=== PATIENT | male | born 1980 | race Caucasian/White ===

== ENCOUNTER 2020-10-22 08:56 | Outpatient (REF) | payer OTHER, SELFPAY ==
--- NOTE | ~2020-10-22 | US_ITS ---
EXAMINATION: US ABDOMEN LIMITED CLINICAL INFORMATION: Right upper quadrant pain. COMPARISON: None TECHNIQUE: Real-time imaging of the right upper quadrant abdominal viscera. FINDINGS: PANCREAS: Normal. LIVER: There is increased hepatic echogenicity consistent with fatty infiltration. The liver is normal in size. The liver contour is normal. No focal hepatic lesion. There is no intrahepatic biliary duct dilatation seen. GALLBLADDER: Normal. The gallbladder is physiologically distended without evidence of stones, sludge, polyps, wall thickening or pericholecystic fluid. COMMON BILE DUCT: Normal in caliber measuring 0.23 cm in diameter. RIGHT KIDNEY: Normal. No hydronephrosis. No renal calculi or focal parenchymal lesions. The kidney measures 10.0 cm in maximum dimension. FREE FLUID: None. US/US abdomen limited IMPRESSION: Fatty infiltration of the liver. No evidence of cholelithiasis or acute cholecystitis.
== END 2020-10-22 08:57 | disposition home or self-care (01) ==
LOC: HO.HMGCX 08:56
PROVIDERS: PCP Nurse Practitioner Family; Visit Provider Hospitalist
DX: R10.11 Right upper quadrant pain (principal)
CPT/HCPCS: 76705

== ENCOUNTER → 2020-11-10 13:22 | Outpatient (BNVA) | payer OTHER, SELFPAY | PROVIDERS: PCP Nurse Practitioner Family; Referring Provider Nurse Practitioner Family; Visit Provider Surgery ==

== ENCOUNTER → 2021-11-24 07:46 | Outpatient (REF) | payer OTHER, SELFPAY ==
--- NOTE | ~2021-11-24 | NM_ITS ---
EXAMINATION: NM HIDA SCAN WITH ENSURE INDICATION: Right upper quadrant pain. COMPARISON: Ultrasound dated 10/22/2020 TECHNIQUE: 5 mCi technetium 99m mebrofenin. FINDINGS: Imaging over the right upper quadrant. Uptake by the liver is within normal limits. There is ductal activity by 11 minutes. Gallbladder activity by 26 minutes. Bowel activity by 12 minutes. Subsequent administration of Ensure demonstrates a gallbladder ejection fraction of 7%. NM/NM hepatobiliary w pharm IMPRESSION: Depressed gallbladder ejection fraction at 7%. May well be consistent with gallbladder dyskinesis.
== END ==
LOC: HO.NUCMED 07:46
PROVIDERS: PCP Nurse Practitioner Family; Visit Provider Nurse Practitioner Family
DX: R10.11 Right upper quadrant pain (principal)
CPT/HCPCS: 78227; A9537

== ENCOUNTER → 2022-02-08 09:48 | Outpatient (BNVA) | payer OTHER, SELFPAY | PROVIDERS: PCP Nurse Practitioner Family; Referring Provider Surgery; Visit Provider Dietitian, Registered | DX: Z71.3 Dietary counseling and surveillance (principal); E66.9 Obesity, unspecified | CPT/HCPCS: 97802 ==

== ENCOUNTER 2022-03-16 12:51 | Outpatient (REF) | payer OTHER, SELFPAY ==
[2022-03-16 13:05] LABS: MANUAL DIFF FLAG NO
[2022-03-16 13:14] LABS: Basophils Absolute Auto 0.1 X10*3/uL (0.0-0.2); Basophils Percent Auto 0.7 % (0-2); Eosinophils Absolute Auto 0.2 X10*3/uL (0.0-0.4); Eosinophils Percent Auto 2.7 % (0-4); Hematocrit 49.1 % (42.0-52.0); Imm Gran Abs Auto 0.03 X10*3/uL (0.00-0.03); Imm Gran Pct Auto 0.4 % (0.0-0.4); Lymphocytes Absolute Auto 2.6 X10*3/uL (1.2-4.9); Lymphocytes Percent Auto 32.3 % (20-40); Mean Corpuscular HGB Conc 36.7 g/dl (31.0-36.0); Mean Corpuscular Hemoglobin 33.3 pg (27.0-33.0); Mean Corpuscular Volume 90.9 fL (80.0-98.0); Mean Platelet Volume 10.5 fL (9.4-12.4); Monocytes Absolute Auto 0.9 X10*3/uL (0.1-1.2); Monocytes Percent Auto 11.1 % (2-11); Neutrophils Absolute Auto 4.3 x10*3/uL (2.0-8.3); Neutrophils Percent Auto 52.8 % (45-73); Platelet Count 220 X10*3/uL (160-400); Red Cell Distribution Width 11.9 % (11.0-16.0); White Blood Count 8.1 X10*3/uL (4.8-10.8)
[2022-03-16 13:48] LABS: Alanine Aminotransferase 69 U/L (0-40); Albumin Level 4.8 g/dL (3.5-5.0); Alkaline Phosphatase 49 U/L (39-117); Anion Gap 14 (12-20); Aspartate Amino Transferase 33 U/L (5-37); Bilirubin Total 0.7 mg/dL (0.0-1.0); Blood Urea Nitrogen 15 mg/dL (9-16); Calcium 9.8 mg/dL (8.4-10.2); Carbon Dioxide 25 mmol/L (22-29); Chloride 103 mmol/L (96-108); Estimated Glomerular Filt Rate > 60; Glucose Random 94 mg/dL (60-115); Potassium 4.4 mmol/L (3.3-5.1); Sodium 138 mmol/L (135-145); Total Protein 7.3 g/dL (6.5-8.0)
== END 2022-03-16 12:52 | disposition home or self-care (01) ==
LOC: HO.LAB 12:51
PROVIDERS: PCP Nurse Practitioner Family; Visit Provider Nurse Practitioner
DX: R10.11 Right upper quadrant pain (principal); K21.9 Gastro-esophageal reflux disease without esophagitis; K76.0 Fatty (change of) liver, not elsewhere classified
CPT/HCPCS: 36415; 80053; 85025; 87338

== ENCOUNTER 2022-04-14 10:21 | Outpatient (REF) | payer OTHER, SELFPAY ==
--- NOTE | ~2022-04-14 | FL_ITS ---
EXAMINATION: FL BARIUM SWALLOW CLINICAL INFORMATION: Right upper quadrant pain. COMPARISON: None TECHNIQUE: Barium swallow examination is performed using fluoroscopic evaluation in addition to multiple fluoroscopic spot views. The patient is imaged both upright and prone and using both thick and thin sulfate. Fluoroscopy Time: 1.6 minutes DAP: 7.6 Gycm2. Images: 30. FINDINGS: Patient swallowed thin and thick barium and half-inch diameter barium tablet without difficulty. There is no evidence of nasopharyngeal reflux or tracheal aspiration. There is normal elevation of the soft palate while saying candy. There is normal apposition of the vocal cords while saying E. No Zenker's diverticulum was identified. No cricopharyngeal hypertrophy. There is normal esophageal motility. No persistent stricture identified. No ulcerations or erosions. There is a small sliding hiatal hernia present. No gastroesophageal reflux was elicited during the study including with water siphon test. FL/FL barium swallow IMPRESSION: 1. Small sliding hiatal hernia. 2. Unremarkable esophagram.
== END 2022-04-14 10:22 | disposition home or self-care (01) ==
LOC: HO.XRAY 10:21
PROVIDERS: PCP Nurse Practitioner Family; Visit Provider Nurse Practitioner
DX: R10.11 Right upper quadrant pain (principal); K21.9 Gastro-esophageal reflux disease without esophagitis; K76.0 Fatty (change of) liver, not elsewhere classified
CPT/HCPCS: 74220

== ENCOUNTER 2022-10-28 10:23 | Outpatient (REF) | payer OTHER, SELFPAY ==
--- NOTE | ~2022-10-28 | US_ITS ---
EXAMINATION: US SCROTUM CLINICAL INFORMATION: Right scrotal pain.. History of right inguinal hernia repair COMPARISON: None available. TECHNIQUE: A sonogram of the scrotum was performed assessing houston-scale appearance and color Doppler flow. Spectral Doppler analysis of the arterial and venous flow were performed in the testes bilaterally. FINDINGS: RIGHT: Right testicle measures 5.0 x 2.8 x 3.2 cm, volume 23.4 mL. No focal testicular parenchymal lesions are visualized. Spectral Doppler analysis of the arterial and venous flow is normal in the right testis. Right epididymal head is normal in size. There is a small anechoic epididymal cyst measuring 0.3 x 0.2 x 0.3 cm. The right epididymis is slightly heterogeneous and hyperemic suspicious for epididymitis No right hydrocele or varicocele is seen. LEFT: Left testicle measures 4.6 x 2.8 x 3.3 cm, volume 22.2 mL. No focal testicular parenchymal lesions are visualized. Spectral Doppler analysis of the arterial and venous flow is normal in the left testis. Left epididymal head is normal in size. There is a small epididymal head anechoic cyst measuring 0.8 x 0.5 x 1.2 cm. No left hydrocele or varicocele is seen. Left epididymal Doppler flow is normal. US/US scrotum IMPRESSION: 1. Slightly heterogeneous and hyperemic right epididymis suspicious for epididymitis. 2. Bilateral epididymal head cysts. 3. The testes are unremarkable. There is normal flow seen to both testes. Results were discussed with Dr. Lipscomb by phone at 11:20 AM
--- NOTE | ~2022-10-28 | US_ITS ---
EXAMINATION: US SCROTUM CLINICAL INFORMATION: Right scrotal pain.. History of right inguinal hernia repair COMPARISON: None available. TECHNIQUE: A sonogram of the scrotum was performed assessing houston-scale appearance and color Doppler flow. Spectral Doppler analysis of the arterial and venous flow were performed in the testes bilaterally. FINDINGS: RIGHT: Right testicle measures 5.0 x 2.8 x 3.2 cm, volume 23.4 mL. No focal testicular parenchymal lesions are visualized. Spectral Doppler analysis of the arterial and venous flow is normal in the right testis. Right epididymal head is normal in size. There is a small anechoic epididymal cyst measuring 0.3 x 0.2 x 0.3 cm. The right epididymis is slightly heterogeneous and hyperemic suspicious for epididymitis No right hydrocele or varicocele is seen. LEFT: Left testicle measures 4.6 x 2.8 x 3.3 cm, volume 22.2 mL. No focal testicular parenchymal lesions are visualized. Spectral Doppler analysis of the arterial and venous flow is normal in the left testis. Left epididymal head is normal in size. There is a small epididymal head anechoic cyst measuring 0.8 x 0.5 x 1.2 cm. No left hydrocele or varicocele is seen. Left epididymal Doppler flow is normal. US/US scrotum doppler IMPRESSION: 1. Slightly heterogeneous and hyperemic right epididymis suspicious for epididymitis. 2. Bilateral epididymal head cysts. 3. The testes are unremarkable. There is normal flow seen to both testes. Results were discussed with Dr. Lipscomb by phone at 11:20 AM
== END 2022-10-28 10:24 | disposition home or self-care (01) ==
LOC: HO.HMGCX 10:23
PROVIDERS: PCP Nurse Practitioner Family; Visit Provider Internal Medicine
DX: N45.2 Orchitis (principal)
CPT/HCPCS: 76870; 93975

== ENCOUNTER → 2022-11-23 13:33 | Outpatient (BNVA) | payer OTHER, SELFPAY | PROVIDERS: PCP Nurse Practitioner Family; Visit Provider Nurse Practitioner ==

== ENCOUNTER 2022-12-02 08:29 | Outpatient (REF) | payer OTHER, SELFPAY ==
[2022-12-02 11:24] LABS: MANUAL DIFF FLAG NO
[2022-12-02 11:31] LABS: Appearance Urine Clear; Color Urine Yellow; Glucose Urine UA Negative (Negative); Leukocyte Esterase Urine Negative (Negative); Nitrite Urine Negative (Negative); PH 5.5 (5.0-9.0); Urine Blood Negative (Negative); Urine Ketones Negative (Negative); Urine Protein Negative (Neg-Trace)
[2022-12-02 11:38] LABS: Basophils Percent Auto 0.6 % (0-2); Eosinophils Absolute Auto 0.1 X10*3/uL (0.0-0.4); Eosinophils Percent Auto 2.2 % (0-4); Hematocrit 48.9 % (42.0-52.0); Hemoglobin 17.6 g/dl (14.0-18.0); Imm Gran Abs Auto 0.05 X10*3/uL (0.00-0.03); Imm Gran Pct Auto 0.8 % (0.0-0.4); Lymphocytes Absolute Auto 2.2 X10*3/uL (1.2-4.9); Lymphocytes Percent Auto 34.8 % (20-40); Mean Corpuscular Hemoglobin 32.5 pg (27.0-33.0); Mean Corpuscular Volume 90.2 fL (80.0-98.0); Mean Platelet Volume 10.8 fL (9.4-12.4); Monocytes Absolute Auto 0.7 X10*3/uL (0.1-1.2); Monocytes Percent Auto 11.6 % (2-11); Neutrophils Absolute Auto 3.2 x10*3/uL (2.0-8.3); Platelet Count 220 X10*3/uL (160-400); Red Blood Count 5.42 X10*6/uL (4.60-5.80); Red Cell Distribution Width 12.2 % (11.0-16.0); White Blood Count 6.4 X10*3/uL (4.8-10.8)
[2022-12-02 11:59] LABS: Alanine Aminotransferase 64 U/L (0-40); Albumin Level 4.3 g/dL (3.5-5.0); Alkaline Phosphatase 48 U/L (39-117); Anion Gap 13 (12-20); Aspartate Amino Transferase 33 U/L (5-37); Bilirubin Total 0.8 mg/dL (0.0-1.0); Blood Urea Nitrogen 14 mg/dL (9-16); Calcium 9.8 mg/dL (8.4-10.2); Carbon Dioxide 24 mmol/L (22-29); Chloride 103 mmol/L (96-108); Cholesterol 165 mg/dL; Estimated Glomerular Filt Rate > 60; Glucose Fasting 99 mg/dL (60-99); HDL Cholesterol 31 mg/dL; LDL Cholesterol Calculated 86 mg/dl; Sodium 136 mmol/L (135-145); Total Protein 7.1 g/dL (6.5-8.0); Triglycerides 242 mg/dL
[2022-12-02 12:19] LABS: TSH reflex Free T4 1.93 uIU/mL (0.32-4.0)
[2022-12-08 18:23] LABS: Testosterone, Free 65.1 pg/mL (35.0-155.0); Testosterone, Total 277 ng/dL (250-1100)
== END 2022-12-02 08:30 | disposition home or self-care (01) ==
LOC: HO.HMGCLDS 08:29
PROVIDERS: PCP Nurse Practitioner Family; Visit Provider Nurse Practitioner Family
DX: Z00.00 Encounter for general adult medical examination without abnormal findings (principal); R53.83 Other fatigue; E78.5 Hyperlipidemia, unspecified
CPT/HCPCS: 36415; 80053; 80061; 81003; 84402; 84403; 84443; 85025

== ENCOUNTER 2023-01-31 08:22 | Outpatient (AMB) | payer OTHER, SELFPAY ==
--- NOTE | 2023-01-31 08:48 | MHC.OFFWIV ---
Intake Vital Signs 01/31/23 08:51 Weight 240 lb BP 112/76 Blood Pressure Location Rt brachial Position Sitting Pulse 76 Pulse Source Pulse Oximeter Pulse Oximetry (%) 98 Oxygen Delivery Method Room Air Intake Visit Reasons: EST/sore throat/cough/[phone] Intake Note: Patient here for sore throat and cough that has been present for about 3 days. Patient Tobacco Use Status: Never used Tobacco Allergies No Known Allergies Allergy (Verified 01/31/23 09:30) Medication List - Last Reconciled 01/31/23 by Joseph Lee MD azithromycin (Zithromax) take 500 mg today (day 1), then 250 mg for 4 days (days 2-5) PO cholecalciferol (vitamin D3) 1,250 mcg PO QWEEK famotidine (Pepcid) 40 mg PO BEDTIME hydrochlorothiazide 25 mg PO DAILY lisinopril 10 mg PO DAILY 90 days methocarbamol 750 mg PO DAILY PRN omega-3 acid ethyl esters 2 caps PO BID 90 days Do you need a note to return to daycare/school/sports/work: No HPI EST/sore throat/cough/[phone] HPI Details Patient presents for a sick visit. Reporting symptoms of sinus congestion, sore throat and difficulty swallowing. Low-grade fever. No family member is sick. No recent travel. Patient reports symptoms of malaise and fatigue. [facility] Medical History Paroxysmal A-fib Nprux-Devuszwpy-Ocuwp (WPW) pattern Surgical History History of cardiac catheterization History of esophagogastroduodenoscopy (EGD) History of right inguinal hernia repair Social History Alcohol intake: current Alcohol intake frequency: holidays/special occasions only Patient Tobacco Use Status: Never used Tobacco e-Cigarette/Vaping Use: Never Used Second Hand Smoke Exposure: No service: Yes Current occupational status: employed Current occupation: [employer] Current occupational exposures/hazards: Yes Cognitive needs: No Hearing needs: No Vision needs: No Physical Exam Vital Signs: Last Vital Signs Pulse 76 01/31/23 08:51 BP 112/76 01/31/23 08:51 Pulse Ox 98 01/31/23 08:51 Oxygen Delivery Method Room Air 01/31/23 08:51 Const General: cooperative and healthy appearing Nutritional Appearance: well nourished Orientation/consciousness: patient oriented x3 Limitations: no limitations HEENT Head: Yes normal to inspection Eyes General: appearance normal, both eyes and all related structures Neck Neck: Yes normal visual inspection Chest Chest palpation & inspection: normal palpation of entire chest wall Resp Effort & Inspection: normal respiratory effort Neuro General: patient oriented x3 Results AMB Rapid Strep AMB Rapid Strep Negative Last Edit by TRAVIS Rodrigues on 01/31/23 09:20 Results Reviewed Results Reviewed: Laboratory Last Values Strep Scn Rapid Clinic Negative 01/31/23 09:19 Assessment & Plan Assessment & Plan (1) Upper respiratory tract infection: Code(s): J06.9 - Acute upper respiratory infection, unspecified Plan: Antibiotics ordered. Increase fluid intake. Tylenol for aches and pains. If symptoms worsen, follow-up here for a recheck. Orders: Orders AMB Rapid Strep Screen Today Z13.9 - Encounter for screening, unspecified Medications: New azithromycin (Zithromax) take 500 mg today (day 1), then 250 mg for 4 days (days 2-5) PO 6 tabs 0RF Coding Level of Care Code Est Pt Level 3 (08750) Diagnoses Upper respiratory tract infection J06.9
[2023-01-31 08:51] VITALS: BP 112/76; PULSE 76; O2SAT 98
== END 2023-01-31 09:56 | disposition home or self-care (01) ==
PROVIDERS: PCP Nurse Practitioner Family; Visit Provider Internal Medicine
DX: J06.9 Acute upper respiratory infection, unspecified (principal); J02.9 Acute pharyngitis, unspecified
CPT/HCPCS: 87880; 99213

== ENCOUNTER 2023-08-30 08:38 | Outpatient (REF) | payer OTHER, SELFPAY ==
[2023-08-30 11:25] LABS: MANUAL DIFF FLAG NO
[2023-08-30 11:40] LABS: Appearance Urine Clear; Color Urine Yellow; Glucose Urine UA Negative (Negative); Leukocyte Esterase Urine Negative (Negative); Nitrite Urine Negative (Negative); Urine Blood Negative (Negative); Urine Ketones Negative (Negative); Urine Protein Negative (Neg-Trace)
[2023-08-30 11:41] LABS: Basophils Percent Auto 0.5 % (0-2); Eosinophils Absolute Auto 0.2 X10*3/uL (0.0-0.4); Eosinophils Percent Auto 2.3 % (0-4); Hematocrit 47.8 % (42.0-52.0); Hemoglobin 17.2 g/dl (14.0-18.0); Imm Gran Abs Auto 0.03 X10*3/uL (0.00-0.03); Imm Gran Pct Auto 0.5 % (0.0-0.4); Lymphocytes Percent Auto 30.2 % (20-40); Mean Corpuscular Hemoglobin 32.6 pg (27.0-33.0); Mean Corpuscular Volume 90.7 fL (80.0-98.0); Mean Platelet Volume 10.5 fL (9.4-12.4); Monocytes Absolute Auto 0.8 X10*3/uL (0.1-1.2); Monocytes Percent Auto 11.7 % (2-11); Neutrophils Absolute Auto 3.7 x10*3/uL (2.0-8.3); Neutrophils Percent Auto 54.8 % (45-73); Platelet Count 222 X10*3/uL (160-400); Red Blood Count 5.27 X10*6/uL (4.60-5.80); Red Cell Distribution Width 12.1 % (11.0-16.0); White Blood Count 6.7 X10*3/uL (4.8-10.8)
[2023-08-30 12:02] LABS: Alanine Aminotransferase 56 U/L (0-40); Albumin Level 4.3 g/dL (3.5-5.0); Alkaline Phosphatase 42 U/L (39-117); Anion Gap 12 (12-20); Aspartate Amino Transferase 33 U/L (5-37); Bilirubin Total 0.5 mg/dL (0.0-1.0); Blood Urea Nitrogen 16 mg/dL (9-16); Calcium 9.3 mg/dL (8.4-10.2); Carbon Dioxide 27 mmol/L (22-29); Chloride 105 mmol/L (96-108); Cholesterol 172 mg/dL (<200); Estimated Glomerular Filt Rate > 60; Glucose Fasting 105 mg/dL (60-99); HDL Cholesterol 31 mg/dL (>40); LDL Cholesterol Calculated 102 mg/dL (<100); Potassium 4.1 mmol/L (3.3-5.1); Sodium 140 mmol/L (135-145); Total Protein 6.8 g/dL (6.5-8.0); Triglycerides 199 mg/dL (<150)
[2023-08-30 12:07] LABS: TSH reflex Free T4 1.49 uIU/mL (0.32-4.0)
== END 2023-08-30 08:39 | disposition home or self-care (01) ==
LOC: HO.HMGCLDS 08:38
PROVIDERS: PCP Nurse Practitioner Family; Visit Provider Nurse Practitioner Family
DX: I10 Essential (primary) hypertension (principal)
CPT/HCPCS: 36415; 80053; 80061; 81003; 84443; 85025

== ENCOUNTER 2023-11-27 06:18 | Outpatient (REF) | payer OTHER, SELFPAY ==
[2023-11-27 10:50] LABS: Alanine Aminotransferase 60 U/L (0-40); Albumin Level 4.4 g/dL (3.5-5.0); Alkaline Phosphatase 43 U/L (39-117); Anion Gap 16 (12-20); Aspartate Amino Transferase 39 U/L (5-37); Bilirubin Total 0.6 mg/dL (0.0-1.0); Blood Urea Nitrogen 19 mg/dL (9-16); Calcium 9.7 mg/dL (8.4-10.2); Carbon Dioxide 23 mmol/L (22-29); Chloride 106 mmol/L (96-108); Cholesterol 148 mg/dL (<200); Estimated Glomerular Filt Rate > 60; Glucose Fasting 111 mg/dL (60-99); HDL Cholesterol 30 mg/dL (>40); LDL Cholesterol Calculated 93 mg/dL (<100); Potassium 3.8 mmol/L (3.3-5.1); Sodium 141 mmol/L (135-145); Total Protein 7.1 g/dL (6.5-8.0); Triglycerides 129 mg/dL (<150)
== END 2023-11-27 06:19 | disposition home or self-care (01) ==
LOC: HO.HMGCLDS 06:18
PROVIDERS: PCP Nurse Practitioner Family; Visit Provider Nurse Practitioner Family
DX: E78.5 Hyperlipidemia, unspecified (principal)
CPT/HCPCS: 36415; 80053; 80061

== ENCOUNTER 2024-02-09 12:46 | Outpatient (AMB) | payer OTHER, SELFPAY ==
--- NOTE | 2024-02-09 13:05 | MHC.OFFWIV ---
Intake Vital Signs 02/09/24 13:06 Height 5 ft 8 in Weight 238 lb BMI 36.2 BP 130/90 H Blood Pressure Location Lt brachial Position Sitting Pulse 72 Pulse Source Pulse Oximeter Pulse Oximetry (%) 97 Oxygen Delivery Method Room Air Intake Visit Reasons: EP- RT leg big bite Intake Note: Patient here for bug bite on right leg that happened last . Patient Tobacco Use Status: Never used Tobacco Allergies No Known Allergies Allergy (Verified 02/09/24 13:07) Do you need a note to return to daycare/school/sports/work: No HPI HPI Comments History of Present Illness Details Patient is a 43-year-old male complaining of 7 days of what he thinks are bug bites on his legs that are extremely itchy. He states that the itching keeps him up at night. He states it started on his right leg and now is on his left leg it is right forearm. He states he does not think the bites have any fluid-filled vesicles that have popped or are weeping any fluid. He states the area is not warm and they seem to be scattered on his legs. He states his and kids have not gotten any of these bites. He does mention they went camping a week ago when when he got home he was mowing the lawn and that is when he thinks everything started [facility] Medical History Paroxysmal A-fib Rbrdk-Gevwunpqf-Dlypj (WPW) pattern Surgical History History of cardiac catheterization History of esophagogastroduodenoscopy (EGD) History of right inguinal hernia repair Social History Alcohol intake: current Alcohol intake frequency: holidays/special occasions only Patient Tobacco Use Status: Never used Tobacco e-Cigarette/Vaping Use: Never Used Second Hand Smoke Exposure: No service: Yes Current occupational status: employed Current occupation: [employer] Current occupational exposures/hazards: Yes Cognitive needs: No Hearing needs: No Vision needs: No Review of Systems Const All systems reviewed & are unremarkable except as noted in HPI and below Physical Exam Vital Signs: Last Vital Signs Pulse 72 02/09/24 13:06 BP 130/90 H 02/09/24 13:06 Pulse Ox 97 02/09/24 13:06 Oxygen Delivery Method Room Air 02/09/24 13:06 BMI result Body Mass Index 36.2 Const General: cooperative, healthy appearing, comfortable and no acute distress Orientation/consciousness: patient oriented x3 Limitations: no limitations HEENT Head: Yes normal to inspection Eyes General: appearance normal, both eyes and all related structures Resp Effort & Inspection: normal respiratory effort and able to speak in complete sentences Skin Other: A streaky, linear maculopapular rash with crusted lesions mostly on his right lower extremity with a few scattered lesions on his left lower extremity and then to streaky linear maculopapular lines on his right upper extremity/forearm. No warmth, the rash is not confluent and it is not weeping. Neuro General: patient oriented x3 Assessment & Plan Assessment & Plan (1) Allergic dermatitis: Code(s): L23.9 - Allergic contact dermatitis, unspecified cause Plan: We will send clobetasol and hydroxyzine, with instructions on how to use the clobetasol, including washing hands after using it and not using it for more than 10-14 days Plan see above Medications: New hydroxyzine HCl 10 mg PO Q6-8H PRN 10 tabs 0RF itching clobetasol 0.05% Apply sparingly to affected areas. Do not use on hands, face or genitals, wash your hands after you apply this medication. 1 appl topical BID 2 weeks 45 grams 0RF Coding Level of Care Code Est Pt Level 3 (31277) Diagnoses Allergic dermatitis L23.9
[2024-02-09 13:06] VITALS: BP 130/90; PULSE 72; O2SAT 97; BMI 36.2
== END 2024-02-09 14:00 | disposition home or self-care (01) ==
PROVIDERS: PCP Nurse Practitioner Family; Visit Provider Physician Assistant
DX: L23.9 Allergic contact dermatitis, unspecified cause (principal)
CPT/HCPCS: 99213

== ENCOUNTER 2024-04-25 15:38 | Outpatient (AMB) | payer OTHER, SELFPAY ==
--- NOTE | 2024-04-25 15:45 | MHC.PC.OV ---
Vital Signs 04/25/24 15:47 Height 5 ft 8 in Weight 242 lb 4 oz BMI 36.8 BP 122/78 Blood Pressure Location Rt brachial Position Sitting Pulse 76 Pulse Source Pulse Oximeter Pulse Oximetry (%) 95 Oxygen Delivery Method Room Air Intake Visit Reasons: Annual PE Allergies No Known Allergies Allergy (Verified 04/25/24 15:45) Medication List - Last Reconciled 04/25/24 by Angélica Isidro NP atorvastatin 10 mg PO BEDTIME cholecalciferol (vitamin D3) 1,250 mcg PO QWEEK clobetasol 0.05% 1 appl topical BID 2 weeks famotidine 40 mg PO BEDTIME 90 days hydrochlorothiazide 25 mg PO DAILY lisinopril 10 mg PO DAILY 90 days methocarbamol 750 mg PO DAILY PRN omega-3 acid ethyl esters 2 caps PO BID 90 days Tobacco use date assessed: 04/25/24 Dental Screening Dental Screen Date: 04/25/24 Did you have a dental visit in the last 12 months?: Yes Did you have a dental problem in the last 6 months where you did not have access to dental care?: No Was dental information given to patient?: Patient has dentist HPI HPI Comments History of Present Illness Details 43 y/o male patient who presents for PE. Pt of Efrain Yee. Pmhx significant for Dyslipidemia, Allergic Dermatitis, GERD, HTN, and Fatty Liver. [facility] Medical History (Updated 04/25/24 @ 17:32 by Angélica Isidro NP) Encounter for routine adult health examination without abnormal findings Paroxysmal A-fib Vmxes-Eavdmdzih-Wvdcy (WPW) pattern Surgical History History of esophagogastroduodenoscopy (EGD) History of cardiac catheterization History of right inguinal hernia repair Social History Alcohol intake: current Alcohol intake frequency: holidays/special occasions only Patient Tobacco Use Status: Never used Tobacco e-Cigarette/Vaping Use: Never Used Second Hand Smoke Exposure: No service: Yes Current occupational status: employed Current occupation: [employer] Current occupational exposures/hazards: Yes Cognitive needs: No Hearing needs: No Vision needs: No Questionnaire Thrive Questionnaire Date Thrive assessed: 04/25/24 I am a: Patient What is your living situation today?: I have a steady place to live Within the past 12 months, did the food you bought not last and you didn't have the money to get more?: Never true Within the past 12 months, did you worry whether your food would run out before you got money to buy more?: Never true Do you have trouble paying for medicines?: No Do you have trouble getting transportation to medical appointments?: No Do you have trouble paying your heating and electricity bill?: No Do you have trouble taking care of your child, family member or friend?: No Do you have trouble with day-to-day activities such as bathing, preparing meals, shopping, managing finances, etc.?: No Are you currently unemployed and looking for a job?: No Are you interested in more education?: No Please select the resources that you would like help with: None THRIVE Score: 0 AUDIT C Alcohol Use Questionnaire (AUDIT-C) 1. How often do you have a drink containing alcohol?: Never 3. How often do you have six or more drinks on one occasion?: Never Total Score: 0 Score Reviewed/Action Taken: Yes CARY-7 AMB Questionnaire CARY-7 Date CARY - 7 assessed: 04/25/24 Feeling nervous, anxious, or on edge: 0 = Not at all Not being able to stop or control worryin = Not at all Worrying too much about different things: 0 = Not at all Trouble relaxin = Not at all Being so restless that it is hard to sit still: 0 = Not at all Becoming easily annoyed or irritable: 0 = Not at all Feeling afraid as if something awful might happen: 0 = Not at all Total CARY-7 score (0-4 normal; 5-9 mild; 10-14 moderate; 15-21 severe): 0 Source: Developed by Drs. Dale Devlin, Ana Paula Hernandez, August Francisco and colleagues, with an educational ky from [employer]. CARY-7 Assessment Billing CARY-7 Assessment Tool: CARY-7 Assessment 05627 Review of Systems Const All systems reviewed & are unremarkable except as noted in HPI and below Physical exam (Primary Care) Vital Signs: Last Vital Signs Pulse 76 04/25/24 15:47 BP 122/78 04/25/24 15:47 Pulse Ox 95 04/25/24 15:47 Oxygen Delivery Method Room Air 04/25/24 15:47 BMI result Body Mass Index 36.8 Tobacco/Smoking Status: Tobacco use Status Tobacco use date assessed 04/25/24 04/25/24 15:48 Patient Tobacco Use Status Never used Tobacco 04/25/24 15:48 e-Cigarette/Vaping Use Never Used 04/25/24 15:48 Thrive Assessment: Date of Thrive Assessment Date Thrive assessed 04/25/24 04/25/24 15:48 Const General: cooperative and no acute distress Nutritional Appearance: obese Orientation/consciousness: patient oriented x3 HENMT Head: Yes normocephalic Ears: external ears normal and TM's normal bilaterally General nose exam: Normal external nose present Face and sinus: Yes sinuses nontender Mouth: moist mucous membranes Throat: Yes posterior oropharynx normal, Yes tonsils normal and Yes uvula midline Eyes Pupils: Equal, round and reactive pupils present EOM: EOMs intact bilaterally Direct Ophthalmoscopy: normal light reflex Neck Neck: Yes full ROM and Yes no lymphadenopathy Thyroid: Thyroid normal Resp Effort & Inspection: normal respiratory effort and able to speak in complete sentences Auscultation: clear to auscultation bilaterally, no crackles, no rales, no rhonchi and no wheezes Cardio Heart sounds: S1 normal heart sound present and S2 normal heart sound present GI Inspection: Yes Abdominal panniculus present and Yes obesity Palpation (GI): Soft to palpation, not firm, nontender, no guarding, not rigid and No hepatosplenomegaly present Percussion: Yes normal to percussion Auscultation: normal bowel sounds Rectal Exam - Male: Yes deferred General: Yes no CVA tenderness Back/Spine/Pelvis Back: no CVA tenderness and No back tenderness Skin General skin exam: no rashes or lesions noted Neuro General: patient oriented x3, gait normal and moves all extremities Cranial nerves: Yes Equal, round and reactive pupils present Motor exam (neuro): 5/5 motor strength present throughout Extrem General: Yes full ROM and Yes capillary refill normal Psych Speech and movement: Normal speech and movement present Coding Level of Care Code Est Pt Prev Care 40-64y(69702) Diagnoses Encounter for routine adult health examination without abnormal findings Z00.00 Dyslipidemia E78.5 Essential hypertension I10 Gastroesophageal reflux disease without esophagitis K21.9 Esophagitis presence: without esophagitis Additional Codes CARY-7 Assessment Billing - CARY-7 Assessment Tool: CARY-7 Assessment 69154 ([id number]) Time Spent (min) 30 Assessment & Plan Assessment & Plan (1) Encounter for routine adult health examination without abnormal findings: Code(s): Z00.00 - Encounter for general adult medical examination without abnormal findings Category: Medical Plan: Exam WNL. (2) Dyslipidemia: Code(s): E78.5 - Hyperlipidemia, unspecified Category: Medical Plan: Discussed Weight loss, healthy eating and daily exercise. (3) Essential hypertension: Code(s): I10 - Essential (primary) hypertension Category: Medical Plan: Discussed Weight loss, healthy eating and daily exercise. (4) GERD (gastroesophageal reflux disease): Code(s): K21.9 - Gastro-esophageal reflux disease without esophagitis Category: Medical Qualifiers: Esophagitis presence: without esophagitis Qualified Code(s): K21.9 - Gastro-esophageal reflux disease without esophagitis Plan: Discussed Weight loss, healthy eating and daily exercise. Plan Discussed Weight loss, healthy eating and daily exercise. Medications: Discontinued hydroxyzine HCl Discontinued Reason: Patient Completed Course 10 mg PO Q6-8H PRN 10 tabs 0RF itching
[2024-04-25 15:47] VITALS: BP 122/78; PULSE 76; O2SAT 95; BMI 36.8
== END 2024-04-25 16:16 | disposition home or self-care (01) ==
LOC: HO.HMCC 15:38
PROVIDERS: PCP Nurse Practitioner Family; Visit Provider Nurse Practitioner Family
DX: Z00.00 Encounter for general adult medical examination without abnormal findings (principal); E78.5 Hyperlipidemia, unspecified; I10 Essential (primary) hypertension; K21.9 Gastro-esophageal reflux disease without esophagitis

== ENCOUNTER → 2024-04-25 15:38 | Outpatient (BNVA) | payer OTHER, SELFPAY | PROVIDERS: PCP Nurse Practitioner Family; Visit Provider Nurse Practitioner Family | DX: Z00.00 Encounter for general adult medical examination without abnormal findings (principal); E78.5 Hyperlipidemia, unspecified; I10 Essential (primary) hypertension; K21.9 Gastro-esophageal reflux disease without esophagitis | CPT/HCPCS: 96127 ==

== ENCOUNTER 2025-05-08 10:12 | Outpatient (REF) | payer OTHER, SELFPAY ==
[2025-05-08 13:00] LABS: MANUAL DIFF FLAG NO
[2025-05-08 13:10] LABS: Imm Gran Abs Auto 0.02 X10*3/uL (0.00-0.03); Imm Gran Pct Auto 0.3 % (0.0-0.4); Lymphocytes Absolute Auto 2.0 X10*3/uL (1.2-4.9); Mean Corpuscular HGB Conc 35.3 g/dl (31.0-36.0); Mean Corpuscular Hemoglobin 32.1 pg (27.0-33.0); Mean Corpuscular Volume 90.9 fL (80.0-98.0); NRBC Abs Auto 0.000 X10*3/uL (0.0-0.012); NRBC Pct Auto 0.0 /100WBC (0.0-0.2); Platelet Count 205 X10*3/uL (160-400); Red Blood Count 6.26 X10*6/uL (4.60-5.80); White Blood Count 7.8 X10*3/uL (4.8-10.8)
[2025-05-08 13:12] LABS: Hematocrit 56.9 % (42.0-52.0); Hemoglobin 20.1 g/dl (14.0-18.0)
[2025-05-08 13:38] LABS: Appearance Urine Clear; Glucose Urine UA Negative (Negative); PH 8.0 (5.0-9.0); Specific Gravity - Urine 1.025 (1.005-1.025)
[2025-05-08 13:52] LABS: Albumin Level 4.7 g/dL (3.5-5.0); Alkaline Phosphatase 45 U/L (39-117); Anion Gap 12 (12-20); Aspartate Amino Transferase 39 U/L (5-37); Blood Urea Nitrogen 21 mg/dL (9-16); Calcium 9.2 mg/dL (8.4-10.2); Carbon Dioxide 24 mmol/L (22-29); Chloride 106 mmol/L (96-108); Cholesterol 142 mg/dL (<200); Estimated Glomerular Filt Rate > 60; HDL Cholesterol 32 mg/dL (>40); Potassium 4.4 mmol/L (3.3-5.1); Sodium 138 mmol/L (135-145); Total Protein 7.0 g/dL (6.5-8.0); Triglycerides 99 mg/dL (<150)
[2025-05-08 13:55] LABS: Alanine Aminotransferase 51 U/L (0-40)
--- OUTSIDE RECORDS SUMMARY | 2025-05-08 15:01 | XMS_ITS | Patient Health Record ---
Author Organization [facility] Kelliaranza Galvan Address [address] [place] [address] Care Team Providers Care Paramedic Instructor Name Role Phone Efrain Murguia Primary Care Provider Unav ailable Saul Amor Unavailable [phone] Reason For Referral No Information Medications Medication SIG (Take, Route, Fr equency, Duration) Notes Start Date End Date Status Keflex 500 MG 1 capsule Orally tiffanie ry 12 hrs; Duration: 10 day(s) 01/26/2018 Not-Taking Social History Tobacco Use: Social History Observation Description Date Details (start date - stop date) Former Smoker NA - NA Tobacco Use/Smoking Question Answer Notes Are you a: former smoker Additional Findings: Tobacco Non-User Current no n-smoker Alcohol Screen Question Answer Notes Did you have a drink contain ing alcohol in the past year? Yes How often did you have a dri nk containing alcohol in the past year? Monthly or less (1 point) Points 1 Interpretation Negative Tobacco use other than smoking: Question Answer Notes Are you an other tobacco user? No Section Notes: u u u u Plan Of Treatment Pending Test Test Name Order Date X ray : Foot, left 2V 03/26/2015 [id number] Plate 01/24/2018 66077 I&D ABSCESS- SIMPLE,SINGLE 016 Insurance Providers Payer Name Payer Address Payer Phone Subscriber Number Group Number Insured Name Patient Relationship to Insured Coverage Start Date Coverage End Date [facility] [address] [place] [address] [id number] Rebecca Mohan Spouse - patient is the spouse of the insured Medical (General) History Medical History History ICD Code Chicken pox Surgical History Surgery Date(Month/Year) Vasectomy 10/15/2018
--- OUTSIDE RECORDS SUMMARY | 2025-05-08 15:01 | XMS_ITS | Encounter Summary ---
Author Organization [facility] Address [address] [place] [address] Care Team Providers Care Resistor Winder Name Role Phone Efrain Yee MD Primary Care Provider [phone] Encounter Details Date Type Department Care Team (Late st Contact Info) Description 03/14/2024 Scanned Document [facility] [address] [id number] Jaspreet Garzon MD [address] [place] [address] Social History Tobacco Use Types Packs/Day Years Used Date Smoking Tobacco: Never Assessed Sex and Gender Information Value Date Recorded Sex Assigned at Male 04/01/2024 7:50 PM EDT Legal Sex Male 12:05 PM EDT Gender Identity Not on file Sexual Orientation Not on file documented as of this encounter Plan of Treatment Not on file documented as of this encounter Visit Diagnoses Not on filedocumented in this encounter Care Teams Resistor Winder Relationship Specialty Start Date End Date Efrain Yee MD [address] [address] PCP - General Family Medicine 02/10/24 documented as of this encounter
--- OUTSIDE RECORDS SUMMARY | 2025-05-08 15:01 | XMS_ITS | Clinical Summary ---
Author Organization [facility] Address [address] [place] [address] Care Team Providers Care House Mover Supervisor Name Role Phone Efrain Yee MD Primary Care Provider Allergies No known active allergies Medications meloxicam (MOBIC) 15 MG tabletIndication s:Pain in pelvis Take 1 tablet (15 mg total) by mouth daily as needed for mild pain. 30 tablet 02/10/2024 Active dexAMETHasone (DECADRON) 2 MG tabletIndication s:Strain of right hamstring muscle, initial encounter TAKE 1 TAB TWICE DAILY FOR 5 DAYS THEN 1 TAB DAILY FOR 5 DAYS 15 tablet 02/28/2024 Active Active Problems No known active problems Social History Tobacco Use Types Packs/Day Years Used Date Smoking Tobacco: Never Assessed Sex and Gender Information Value Date Recorded Sex Assigned at Male 04/01/2024 7:50 PM EDT Legal Sex Male 12:05 PM EDT Gender Identity Not on file Sexual Orientation Not on file Last Filed Vital Signs Vital Sign Reading Time Taken Comments Blood Pressure 130/75 04/01/2024 5:17 PM EDT Pulse 77 04/01/2024 5:17 PM EDT Temperature - - Respiratory Rate 18 04/01/2024 5:17 PM EDT Oxygen Saturation 99% 04/01/2024 5:17 PM EDT Inhaled Oxygen Concentration - - Weight - - Height - - Body Mass Index - - Plan of Treatment Health Maintenance Due Date Last Done Comments Hepatitis C Virus Screening 1981 HIV Screening 1994 DTaP/Tdap/Td Vaccines (1 - Tdap) 2000 Hepatitis B Vaccines (1 of 3 - 19+ 3-dose series) 2000 Influenza Vaccine 01/17/2025 03/13/2023, 02/17/2022, 04/19/2019 COVID-19 Vaccine (1 - 2023-2 5 season) 2025 HPV Vaccines (No Doses Required) Completed Pneumococcal Vaccine: Pediatric (0-5 Years) and At-Risk Patients (6 to 49 Years) Aged Out No longer eligible b ased on patient's age to complete this topic Insurance [facility] Care Teams House Mover Supervisor Relationship Specialty Start Date End Date Efrain Yee MD [address] [facility] [place] [address] PCP - General Family Medicine 02/10/24
--- OUTSIDE RECORDS SUMMARY | 2025-05-08 15:01 | XMS_ITS ---
Author Name [facility] Organization Unknown History of Medication Use Medication Directions Dispensed Refills Start Date End Date Stat us dexAMETHasone (DECADRON) 2 MG tablet TAKE 1 TAB TWICE DAILY FOR 5 DAYS THEN 1 TAB DAILY FOR 5 DAYS 02/28/2024 active meloxicam (MOBIC) 15 MG tablet Take 1 tablet (15 mg total) by mouth daily as needed for mild pain. 02/10/2024 active Problems Problem Status Onset Date Problem Type Date of Resoluti on Source Pain in pelvis active EncounterDiagnosisAct [facility] Encounters Encounter Type Encounter Reason Primary Diagnosis Location Date Ambulatory Radiculopathy, lumbosacral region Radiculopathy, lumbosacral region [facility] 05/24/2024 Ambulatory Radiculopathy, lumbosacral region Radiculopathy, lumbosacral region [facility] 04/26/2024 Ambulatory MODIFY Radiculopathy, lumbosacral region [facility] [place], [facility] 04/10/2024 Ambulatory [facility] 04/01/2024 Ambulatory Radiculopathy, lumbosacral region Radiculopathy, lumbosacral region [facility] 04/01/2024 Ambulatory Other intervertebral disc displacement, lumbar region Other intervertebral disc displacement, lumbar region [facility] 03/26/2024 Ambulatory Other intervertebral disc displacement, lumbar region Other intervertebral disc displacement, lumbar region [facility] 03/22/2024 Ambulatory PT Treatment PT Treatment [facility] 03/08/2024 Ambulatory Strain of muscle, fascia and tendon of the posterior muscle group at thigh level, right thigh, subsequent encounter Strain of muscle, fascia and tendon of the posterior muscle group at thigh level, right thigh, subsequent encounter [facility] 03/01/2024 Ambulatory Pain Pain [facility] 02/28/2024 Ambulatory Strain of muscle, fascia and tendon of the posterior muscle group at thigh level, right thigh, subsequent encounter Strain of muscle, fascia and tendon of the posterior muscle group at thigh level, right thigh, subsequent encounter [facility] 02/26/2024 Ambulatory Strain of muscle, fascia and tendon of the posterior muscle group at thigh level, right thigh, subsequent encounter Strain of muscle, fascia and tendon of the posterior muscle group at thigh level, right thigh, subsequent encounter [facility] 02/23/2024 Ambulatory Strain of muscle, fascia and tendon of the posterior muscle group at thigh level, right thigh, subsequent encounter Strain of muscle, fascia and tendon of the posterior muscle group at thigh level, right thigh, subsequent encounter [facility] 02/20/2024 Ambulatory Pain [facility] 02/13/2024 Ambulatory [facility] 02/10/2024 Ambulatory Pelvic and perineal pain Pelvic and perineal pain [facility] 02/10/2024 Care Team Organization Name Specialty Phone Email Start Date End Da te [facility], [facility] 04/02/2024 [facility] DAVID Primary Care 02/10/2024 09/04/2024 [facility] ARIADNA HERNANDEZ Primary Care 02/10/2024
--- OUTSIDE RECORDS SUMMARY | 2025-05-08 15:01 | XMS_ITS | Encounter Summary ---
Author Organization [facility] Address [address] [place] [address] Care Team Providers Care Topper Press Operator Name Role Phone Efrain Yee MD Primary Care Provider [phone] Encounter Details Date Type Department Care Team (Late st Contact Info) Description 05/13/2024 Scanned Document [facility] [address] [place] [address] Rafael Collins APRN [address] [facility] [address] [place] [phone] Social History Tobacco Use Types Packs/Day Years [...] on filedocumented in this encounter Care Teams Topper Press Operator Relationship Specialty Start Date End Date Efrain Yee MD [address] [place] [address] PCP - General Family Medicine 02/10/24 documented as of this encounter
--- OUTSIDE RECORDS SUMMARY | 2025-05-08 15:02 | XMS_ITS | Encounter Summary ---
Author Organization [facility] Address [address] [place] [address] Care Team Providers Care Credit Charge Authorizer Name Role Phone Efrain Yee MD Primary Care Provider [phone] Encounter Details Date Type Department Care Team (Late st Contact Info) Description 04/10/2024 Scanned Document [facility] [address] [place] [address] Sharan Kraus MD [address] [place] [address] [address] [place] [phone] Social History Tobacco Use Types Packs/Day Years [...] on filedocumented in this encounter Care Teams Credit Charge Authorizer Relationship Specialty Start Date End Date Efrain Yee MD [address] [place] [address] PCP - General Family Medicine 02/10/24 documented as of this encounter
== END 2025-05-08 10:13 | disposition home or self-care (01) ==
LOC: HO.HMGCLDS 10:12
PROVIDERS: PCP Nurse Practitioner Family; Visit Provider Nurse Practitioner Family
DX: I10 Essential (primary) hypertension (principal); E78.5 Hyperlipidemia, unspecified; E55.9 Vitamin D deficiency, unspecified
CPT/HCPCS: 36415; 80053; 80061; 81003; 82306; 84443; 85025

== ENCOUNTER 2025-05-13 12:25 | Outpatient (AMB) | payer OTHER, SELFPAY ==
--- NOTE | 2025-05-13 12:33 | A.OFFPC_ITS ---
Vital Signs 05/13/25 12:34 Height 5 ft 8 in Weight 234 lb BMI 35.6 BP 128/84 Blood Pressure Location Rt brachial Position Sitting Respiration 16 Pulse 84 Pulse Source Pulse Oximeter Pulse Oximetry (%) 97 Oxygen Delivery Method Room Air Intake Visit Reasons: Annual PE- RESCHEDULE Body Trimmer Required: No Accompanied by: Self Allergies No Known Allergies Allergy (Verified 05/13/25 13:02) Medication List - Last Reconciled 05/13/25 by BRITTNEY Wilson atorvastatin 10 mg PO BEDTIME cholecalciferol (vitamin D3) 1,250 mcg PO QWEEK cholecalciferol (vitamin D3) 50 mcg PO DAILY clobetasol 0.05% 1 appl topical BID 2 weeks hydrochlorothiazide 25 mg PO DAILY lisinopril 10 mg PO DAILY 90 days methocarbamol 750 mg PO DAILY PRN omega-3 acid ethyl esters 2 caps PO BID 90 days Tobacco use date assessed: 05/13/25 Dental Screening Dental Screen Date: 05/13/25 Did you have a dental visit in the last 12 months?: Yes Did you have a dental problem in the last 6 months where you did not have access to dental care?: No Was dental information given to patient?: Patient has dentist HPI Annual PE- RESCHEDULE HPI Details History of Present Illness The patient is a 44 year old individual presenting for a physical exam. The patient is on testosterone therapy and has been working with a sports medicine trainer since September of last year. Recent lab work revealed an elevated hematocrit and hemoglobin, which is likely related to the testosterone therapy. The patient's labs are checked regularly by the facility providing the testosterone. The patient also has a history of a fatty liver and slightly elevated liver enzymes, noting that the current levels are not as high as they have been previously. Health Maintenance The patient presented for a physical exam. The physical exam was completely mick gn. Will follow up on labs in six months. Social History - Exercise: The patient has been working with a sports medicine trainer since September of last year. - Substance use: The patient is on testo sterone therapy. Review of Systems - Constitutional: Reports feeling excell ent. - denies any cp, sob, fevers, chills, n/ v, urinary issues, diarrhea, constipation, SI, HI. Physical Exam General: Cooperative, healthy appearing, comfortable, no acute distress and well developed Orientation: Patient oriented x3 Limitations: No limitations Head: Normal to inspection Ears: Hearing grossly normal bilaterally Nose: Normal external nose present Face and sinus: Normal facial exam Eyes: Appearance normal, both eyes and all related structures Neck: Normal visual inspection and Yes full ROM Respiratory: Normal respiratory effort and able to speak in complete sentences. Clear to auscultation bilaterally Cardiovascular: Regular rate and rhythm. Normal S1 and S2 GI: Normal to inspection. Soft to palpation and nontender : testicles without masses/lesions and no hernias appreciated Skin: No rashes or lesions noted Neuro: Patient oriented x3 Extremities: Normal to inspection Results - Labs: Recent labs show an elevated hem atocrit and hemoglobin (H&H). - Labs: Slightly elevated liver enzymes, which are improved from previous levels. Plan 1. Secondary Polycythemia The patient's elevated hematocrit and hemoglobin are noted to be most likely related to testosterone therapy. The patient's labs are already being monitored by the facility providing the testosterone. Will continue to monitor and repeat labs in approximately six months. 2. Elevated Liver Enzymes The patient has a history of fatty liver and is noted to have slightly elevated liver enzymes, though they are not as high as previous measurements. Will continue to monitor and plan to repeat labs in six months. Discussion Notes I discussed the lab results, noting the elevated H&H is likely due to testosterone therapy. I also noted the history of fatty liver and slightly elevated liver enzymes, which have shown improvement. We will continue to monitor these values and will repeat labs in about six months. Patient Instructions - Continue working with your sports medicine trainer. - We will recheck your bloodwork in abou t six months to monitor your blood counts and liver function. [facility] Medical History Encounter for routine adult health examination without abnormal findings Paroxysmal A-fib Tiwui-Pcpvnulyr-Rgvrb (WPW) pattern Surgical History History of esophagogastroduodenoscopy (EGD) History of cardiac catheterization History of right inguinal hernia repair Social History Alcohol intake: current Alcohol intake frequency: holidays/special occasions only Patient Tobacco Use Status: Never used Tobacco e-Cigarette/Vaping Use: Never Used Second Hand Smoke Exposure: No service: Yes Current occupational status: employed Current occupation: [employer] Current occupational exposures/hazards: Yes Cognitive needs: No Hearing needs: No Vision needs: No Questionnaire PHQ-9 Over the last 2 weeks, how often have you been bothered by any of the following problems? 1. Little interest or pleasure in doing things: not at all 2. Feeling down, depressed, or hopeless: not at all 3. Trouble falling or staying asleep, or sleeping too much: not at all 4. Feeling tired or having little energy: not at all 5. Poor appetite or overeating: not at all 6. Feeling bad about yourself - or that you are a failure or have let yourself or your family down: not at all 7. Trouble concentrating on things, such as reading the newspaper or watching television: not at all 8. Moving or speaking so slowly that other people could have noticed. Or the opposite - being so fidgety or restless that you have been moving around a lot more than usual: not at all 9. Thoughts that you would be better off or of hurting yourself in some way: not at all Total score: 0 Source: Developed by Drs. Dale Devlin, Ana Paula Henrandez, August Francisco and colleagues, with an educational ky from [employer]. Thrive Questionnaire Date Thrive assessed: 04/25/24 I am a: Patient What is your living situation today?: I have a steady place to live Within the past 12 months, did the food you bought not last and you didn't have the money to get more?: Often true Within the past 12 months, did you worry whether your food would run out before you got money to buy more?: Often true Do you have trouble paying for medicines?: I choose not to answer this question Do you have trouble getting transportation to medical appointments?: I choose not to answer this question Do you have trouble paying your heating and electricity bill?: I choose not to answer this question Do you have trouble taking care of your child, family member or friend?: I choose not to answer this question Do you have trouble with day-to-day activities such as bathing, preparing meals, shopping, managing finances, etc.?: I choose not to answer this question Are you currently unemployed and looking for a job?: I choose not to answer this question Are you interested in more education?: I choose not to answer this question Please select the resources that you would like help with: None Currently or been in a relationship where the following occur: I choose not to answer THRIVE Score: 2 AUDIT C Alcohol Use Questionnaire (AUDIT-C) 1. How often do you have a drink containing alcohol?: Never Total Score: 0 CARY-7 AMB Questionnaire CARY-7 Date CARY - 7 assessed: 05/13/25 Feeling nervous, anxious, or on edge: 0 = Not at all Not being able to stop or control worryin = Not at all Worrying too much about different things: 0 = Not at all Trouble relaxin = Not at all Being so restless that it is hard to sit still: 0 = Not at all Becoming easily annoyed or irritable: 0 = Not at all Feeling afraid as if something awful might happen: 0 = Not at all Total CARY-7 score (0-4 normal; 5-9 mild; 10-14 moderate; 15-21 severe): 0 Source: Developed by Drs. Dale Devlin, Ana Paula Hernandez, August Francisco and colleagues, with an educational ky from [employer]. CARY-7 Assessment Billing CARY-7 Assessment Tool: CARY-7 Assessment 14169 Physical exam (Primary Care) Vital Signs: Last Vital Signs Pulse 84 05/13/25 12:34 Resp 16 05/13/25 12:34 BP 128/84 05/13/25 12:34 Pulse Ox 97 05/13/25 12:34 Oxygen Delivery Method Room Air 05/13/25 12:34 BMI result Body Mass Index 35.6 Tobacco/Smoking Status: Tobacco use Status Tobacco use date assessed 05/13/25 05/13/25 12:50 Patient Tobacco Use Status Never used Tobacco 05/13/25 12:33 e-Cigarette/Vaping Use Never Used 05/13/25 12:33 PHQ-9: PHQ-9 Score PHQ-9: Total score 0 05/13/25 12:35 Thrive Assessment: Date of Thrive Assessment Date Thrive assessed 04/25/24 05/13/25 12:33 Currently or been in a relationship where the following occur: I choose not to answer Coding Level of Care Code Est Pt Prev Care 40-64y(29282) Diagnoses Encounter for routine adult health examination without abnormal findings Z00.00 Screening for prostate cancer Z12.5 Vitamin D deficiency E55.9 Additional Codes CARY-7 Assessment Billing - CARY-7 Assessment Tool: CARY-7 Assessment 64329 ([id number]) Assessment & Plan Assessment & Plan (1) Encounter for routine adult health examination without abnormal findings: Code(s): Z00.00 - Encounter for general adult medical examination without abnormal findings Category: Medical (2) Screening for prostate cancer: Code(s): Z12.5 - Encounter for screening for malignant neoplasm of prostate Category: Medical (3) Vitamin D deficiency: Code(s): E55.9 - Vitamin D deficiency, unspecified Category: Medical Plan . Orders: Orders Prostate Specific Antigen Scr Today Z12.5 - Encounter for screening for malignant neoplasm of prostate Complete Blood Count Auto Diff 6 Months E55.9 - Vitamin D deficiency, unspecified Comprehensive [place]. Panel Fast 6 Months E55.9 - Vitamin D deficiency, unspecified TSH reflex Free T4 6 Months E55.9 - Vitamin D deficiency, unspecified UA CC w/rflx Micro + Cult 6 Months E55.9 - Vitamin D deficiency, unspecified Lipid Panel 6 Months E55.9 - Vitamin D deficiency, unspecified Medications: New cholecalciferol (vitamin D3) 25 mcg PO DAILY 90 caps 0RF 90 days meloxicam 15 mg PO DAILY PRN 30 tabs 2RF pain 30 days Discontinued cholecalciferol (vitamin D3) Discontinued Reason: Doctor's Order 50 mcg PO DAILY 90 caps 0RF
[2025-05-13 12:34] VITALS: BP 128/84; PULSE 84; RESP 16; O2SAT 97; BMI 35.6
--- OUTSIDE RECORDS SUMMARY | 2025-05-13 16:02 | XMS_ITS | Encounter Summary ---
Author Organization [facility] Address [address] [place] [address] Care Team Providers Care Time Clerk Name Role Phone Efrain Yee MD Primary Care Provider [phone] Encounter Details Date Type Department Care Team (Late st Contact Info) Description 04/10/2024 Scanned Document [facility] [address] [place] [address] Sharan Kraus MD [address] [place] [address] [address] [place] [phone] Social History Tobacco Use Types Packs/Day Years [...] on filedocumented in this encounter Care Teams Time Clerk Relationship Specialty Start Date End Date Efrain Yee MD [address] [place] [address] PCP - General Family Medicine 02/10/24 documented as of this encounter
--- OUTSIDE RECORDS SUMMARY | 2025-05-13 16:02 | XMS_ITS | Clinical Summary ---
Author Organization [facility] it Address [address] [place] [address] Care Team Providers Care Meatcutter Name Role Phone Unavailable Primary Care Provider Unavailabl e Social History Tobacco Use Types Packs/Day Years Used Date Smoking Tobacco: Never Assessed Sex and Gender Information Value Date Recorded Sex Assigned at Not on file Legal Sex Male 8:03 PM EST Gender Identity Not on file Sexual Orientation Not on file Plan of Treatment Health Maintenance Due Date Last Done Comments DTaP,Tdap,and Td Vaccines (1 - Tdap) 2000 Hepatitis B Vaccines (1 of 3 - 19+ 3-dose series) 2000 HPV Vaccines (1 - 3-dose SCD M series) 2008 Depression Screening 06/19/2024 COVID-19 Vaccine (1 - 2024-2 6 season) 2025 Influenza Vaccine (#1) 2025 RSV Immunization Adult Patie nts (1 - 1-dose 75+ series) 2056 HIB Vaccines Aged Out No longer eligi ble based on patient's age to complete this topic Hepatitis A Vaccines Aged Out No long er eligible based on patient's age to complete this topic IPV Vaccines Aged Out No longer eligi ble based on patient's age to complete this topic MMR Vaccines Aged Out No longer eligi ble based on patient's age to complete this topic Meningococcal ACWY Vaccine Aged Out N o longer eligible based on patient's age to complete this topic Meningococcal B Vaccine Aged Out No l onger eligible based on patient's age to complete this topic Pneumococcal Vaccine: Pediat rics (0 to 5 Years) and At-Risk Patients (6 to 49 Years) Aged Out No longer eligible b ased on patient's age to complete this topic RSV Immunization Patients Un radha 20 months Aged Out No longer eligible b ased on patient's age to complete this topic Varicella Vaccines Aged Out No longer eligible based on patient's age to complete this topic
--- OUTSIDE RECORDS SUMMARY | 2025-05-13 16:02 | XMS_ITS | Clinical Summary ---
Author Organization [facility] Address [address] [place] [address] Care Team Providers Care Assembler Metal Building Name Role Phone Efrain Yee MD Primary [...] patient's age to complete this topic Insurance [facility] Care Teams Assembler Metal Building Relationship Specialty Start Date End Date Efrain Yee MD [address] [facility] [place] [address] PCP - General Family Medicine 02/10/24
--- OUTSIDE RECORDS SUMMARY | 2025-05-13 16:02 | XMS_ITS | Encounter Summary ---
Author Organization [facility] Address [address] [place] [address] Care Team Providers Care Wool Presser Name Role Phone Efrain Yee MD Primary Care Provider [phone] Encounter Details Date Type Department Care Team (Late st Contact Info) Description 03/14/2024 Scanned Document [facility] [address] [phone] Jaspreet Garzon MD [address] [place] [address] Social History Tobacco Use Types Packs/Day Years [...] on filedocumented in this encounter Care Teams Wool Presser Relationship Specialty Start Date End Date Efrain Yee MD [address] [place] [address] PCP - General Family Medicine 02/10/24 documented as of this encounter
--- OUTSIDE RECORDS SUMMARY | 2025-05-13 16:02 | XMS_ITS | Encounter Summary ---
Author Organization [facility] Address [address] [place] [address] Care Team Providers Care Integrated Circuit Layout Designer Name Role Phone Efrain Yee MD Primary Care Provider [phone] Encounter Details Date Type Department Care Team (Late st Contact Info) Description 05/13/2024 Scanned Document [facility] [address] [place] [address] Rafael Collins APRN [address] [facility] [address] [place] [phone] Social History Tobacco Use Types Packs/Day Years [...] on filedocumented in this encounter Care Teams Integrated Circuit Layout Designer Relationship Specialty Start Date End Date Efrain Yee MD [address] [place] [address] PCP - General Family Medicine 02/10/24 documented as of this encounter
--- OUTSIDE RECORDS SUMMARY | 2025-05-13 16:02 | XMS_ITS | Patient Health Record ---
Author Organization [facility] Address [address] [facility] [place] [address] Care Team Providers Care Sheet Metal Duct Installer Helper Name Role Phone Efrain Murguia Primary Care Provider Unav ailable Saul Amor Unavailable [phone] Reason For Referral No Information Medications Medication [...] X ray : Foot, left 2V 03/26/2015 [id number] Plate 01/24/2018 15508 I&D ABSCESS- SIMPLE,SINGLE 016 Insurance Providers Payer Name Payer Address Payer Phone Subscriber Number Group Number Insured Name Patient Relationship to Insured Coverage Start Date Coverage End Date [facility] [address] [place] [address] [id number] Rebecca Mohan Spouse - patient is the spouse of the insured Medical (General) History Medical History History ICD Code Chicken pox Surgical History Surgery Date(Month/Year) Vasectomy 10/15/2018
== END 2025-05-13 13:52 | disposition home or self-care (01) ==
LOC: HO.HMCC 12:26
PROVIDERS: PCP Nurse Practitioner Family; Visit Provider Nurse Practitioner Family
DX: Z00.00 Encounter for general adult medical examination without abnormal findings (principal); Z12.5 Encounter for screening for malignant neoplasm of prostate; E55.9 Vitamin D deficiency, unspecified

== ENCOUNTER 2025-05-13 12:25 | Outpatient (REF) | payer OTHER, SELFPAY | END 2025-05-13 12:26 | disposition home or self-care (01) | LOC: HO.HMGCLDS 12:25 | PROVIDERS: PCP Nurse Practitioner Family; Visit Provider Nurse Practitioner Family | DX: Z12.5 Encounter for screening for malignant neoplasm of prostate (principal); Z00.00 Encounter for general adult medical examination without abnormal findings; E55.9 Vitamin D deficiency, unspecified | CPT/HCPCS: 36415; 84153; 96127 ==

== ENCOUNTER 2025-06-03 07:29 | Outpatient (AMB) | payer OTHER, SELFPAY ==
--- OUTSIDE RECORDS SUMMARY | 2025-06-02 10:00 | XMS_ITS | Encounter Summary ---
Author Organization [facility]ly [facility] Address [address] [place] [address] Care Team Providers Care Department Head College Or [employer] Name Role Phone Efrain Yee NP Primary Care Provider [phone] Reason for Visit * Reason Comments Pain Encounter Details Date Type Department Care Team ([facility] st Contact Info) Description 06/02/2025 10:00 AM EST Office Visit Orthopedic [address] [phone] Sharan Kraus MD [address] [facility] [address] [place] [address] Radiculopathy, lumbosacral region (Primary Dx); Lumbar disc herniation Social History Tobacco Use Types Packs/Day Years Used Date Smoking Tobacco: Never Assessed Sex and Gender Information Value Date Recorded Sex Assigned at Male 04/01/2024 7:50 PM EDT Legal Sex Male 12:05 PM EDT Gender Identity Not on file Sexual Orientation Not on file documented as of this encounter Progress Notes * Sharan Krasu MD - 06/02/2025 10:00 AM EST Images from the original note were not included. OA [address] [facility] [address] [address] Encounter Date: 06/02/2025 Assessment & Plan 1. Radiculopathy, lumbosacral region 2. Lumbar disc herniation Patient has a history of disc extrusion and radiculopathy. He had an exacerbation last week. He isfeeling much better with steroids. Plan Given his history of a disc extrusion I am apprehensive about releasing him to full duty work. 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 I do want him to endanger himself or others Work status increased work capacity lifting more than 25 pounds He will engage in therapy for the next 2 weeks See him back in about 2 weeks and see how he is doing and make a determination on releasing him to full duty at that time History of Present Illness: Shahid Mohan is a 44 y.o. male who presents today for an evaluation. Patient returns. He was here in 2024. He took oral steroids with 100% resolution of his low backpain. He does have a history of a disc extrusion and he had a protracted recovery last year. He hasbeen working full duty. He was placed on light duty over the past week. 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 Physical Exam Physical Examination of the patient reveals the following: Patient is well appearing, A&Ox3, not in acute distress. Extremity Testing; Motor testin/5 Sensory testing is intact Spinal reflexes are symmetrical With the exception of abnormal findings listed below... Spinal enhancement fluid Imaging/Data Review Imaging was independently reviewed and interpreted by me within the boundaries of my professional education. Imaging results are reviewed and compared with radiologist professional readings. Questions or concerns regarding such imaging will be deferred to the expertise of the reading radiologist orother qualified professional. Visit Orders. No orders of the defined types were placed in this encounter. No orders of the defined types were placed in this encounter. Sharan Kraus MD documented in this encounter Plan of Treatment Upcoming Encounters Date Type Department Care Team (Late st Contact Info) Description 06/06/2025 11:30 AM EST Evaluation [facility] [address] [place] [address] Sharan Kraus MD [address] [facility] [address] [place] [address] Demi Granados, PT [address] [place] [address] 06/09/2025 10:00 AM EST Treatment [facility] [address] [address] Demi Granados, PT [address] [place] [address] 06/17/2025 10:30 AM EST Treatment [facility] [address] [address] Demi Granados, PT [address] [place] [address] 06/23/2025 10:00 AM EST Office Visit [facility] [address] [place] [address] Sharan Kraus MD [address] [place] [phone] 06/24/2025 9:00 AM EST Treatment [facility] [address] [address] Demi Granados, PT [address] [place] [address] 07/02/2025 9:30 AM EST Treatment [facility] [address] [address] Demi Granados, PT [address] [place] [address] documented as of this encounter Visit Diagnoses Diagnosis Radiculopathy, lumbosacral region- Primary Thoracic or lumbosacral neuritis or radiculitis, unspecified Lumbar disc herniation Displacement of lumbar intervertebral disc without myelopathy documented in this encounter Care Teams Department Head College Or University Relationship Specialty Start Date End Date Efrain Yee NP [address] [place] [address] PCP - General Family Medicine 02/10/24 documented as of this encounter
--- OUTSIDE RECORDS SUMMARY | 2025-06-03 07:30 | XMS_ITS | Clinical Summary ---
Author Organization [facility] Address [address] [place] [address] Care Team Providers Care Soda Room Operator Name Role Phone Efrain Yee NP Primary Care Provider Allergies No known active allergies Medications meloxicam (MOBIC) 15 MG tabletIndicatio ns:Pain in pelvis Take 1 tablet (15 mg total) by mouth daily as needed for mild pain. 30 tablet 4 Active dexAMETHasone (DECADRON) 2 MG tabletIndicatio ns:Radiculopath y, lumbosacral region 4mg po qam days 1-5 then 2mg po qam days 6-10 15 tablet 5 Active dexAMETHasone (DECADRON) 2 MG tabletIndicatio ns:Strain of right hamstring muscle, initial encounter TAKE 1 TAB TWICE DAILY FOR 5 DAYS THEN 1 TAB DAILY FOR 5 DAYS 15 tablet 4 05/26/20 25 Discontinued Active Problems No known active problems Encounters Date Type Department Care Team Description 06/02/2025 10:00 AM EST Office Visit Orthopedic [address] [address] Sharan Kraus MD Radiculopathy, lumbosacral region (Primary Dx); Lumbar disc herniation 05/26/2025 9:00 AM EST Ancillary Procedure Orthopedic [address] [address] Sharan Kraus MD 05/26/2025 8:45 AM EST Office Visit Orthopedic [address] [place] [address] Sharan Kraus MD Radiculopathy, lumbosacral region (Primary Dx); Lumbar disc herniation from Last 3 Months Social History Tobacco Use Types Packs/Day Years [...] Mass Index - - Plan of Treatment Upcoming Encounters Date Type Department Care Team (Late st Contact Info) Description 06/06/2025 11:30 AM EST Evaluation [place] [address] Sharan Kraus MD [address] [place] [address] Demi Granados, PT [address] [place] [address] 06/09/2025 10:00 AM EST [facility] [address] [address] Demi Granados, PT [address] [place] [address] 06/17/2025 10:30 AM EST [facility] [address] [address] Demi Granados, PT [address] [place] [address] 06/23/2025 10:00 AM EST Office Visit [facility] [address] [place] [address] Sharan Kraus MD 499 [facility] [address] [place] [address] 06/24/2025 9:00 AM EST Treatment [facility] [address] [address] Demi Granados, PT 7 [place], [place] [phone] 07/02/2025 9:30 AM EST Treatment [facility] [address] [address] Demi Granados, PT 7 [place], [place] [phone] Health Maintenance Due Date Last Done Comments Hepatitis C Virus Screening 1981 HIV Screening 1994 DTaP/Tdap/Td Vaccines (1 - Tdap) 2000 Hepatitis B Vaccines (1 of 3 - 19+ 3-dose series) 2000 Influenza Vaccine 01/17/2025 03/13/2023, , 04/19/2019, Additional history exists COVID-19 Vaccine (2024- season) 2025 HPV Vaccines (No Doses Required) Completed Pneumococcal Vaccine: Pediatric (0-5 Years) and At-Risk Patients (6 to 49 Years) Aged Out No longer eligible based on patient's age to complete this topic Procedures Procedure Name Priority Date/Time Associated Diagnosis Comments XR LUMBAR SPINE COMPLETE 4+ VIEWS Routine 05/26/2025 9:01 AM EST Radiculopathy, lumbosacral region Lumbar disc herniation from Last 3 Months Results * XR Lumbar spine complete 4+ views (05/26/2025 9:01 AM EST) Narrative OAH - 05/26/2025 9:01 AM EST This exam was performed in office at [facility] and images reviewed by orthopedic provider. Any findings are documented within ambulatory encounter note on date of service. Sharan Kraus MD IMG DIAGNOSTIC IMAGING ORDERAB LES Final Result OA from Last 3 Months Insurance [facility] [place] [address] Care Teams Soda Room Operator Relationship Specialty Start Date End Date Efrain Yee NP [address] [facility] [address] [place] [address] PCP - General Family Medicine 02/10/24
--- OUTSIDE RECORDS SUMMARY | 2025-06-03 07:30 | XMS_ITS | Encounter Summary ---
Author Organization [facility] Address [address] [place] [address] Care Team Providers Care Plating Technician Name Role Phone Efrain Yee NP Primary Care Provider Encounter Details Date Type Department Care Team (Late st Contact Info) Description 05/13/2024 Scanned Document [facility] [address] [place] [address] Rafael Collins APRN [address] [facility] [address] [place] [address] Social History Tobacco Use Types Packs/Day Years Used Date Smoking Tobacco: Never Assessed Sex and Gender Information Value Date Recorded Sex Assigned at Male 04/01/2024 7:50 PM EDT Legal Sex Male 12:05 PM EDT Gender Identity Not on file Sexual Orientation Not on file documented as of this encounter Plan of Treatment Upcoming Encounters Date Type Department Care Team (Late st Contact Info) Description 06/06/2025 11:30 AM EST [facility] [address] [place] [address] Sharan Kruas MD [address] [facility] [address] [place] [address] Demi Granados, PT [address] [place] [address] 06/09/2025 10:00 AM EST Treatment [facility] [address] [address] Demi Granados, PT 7 [place] [address] 06/17/2025 10:30 AM EST Treatment [facility] [address] [address] Demi Granados, PT 7 [place] [address] 06/23/2025 10:00 AM EST Office [facility] [address] [address] Sharan Kraus MD [address] [place] [address] 06/24/2025 9:00 AM EST Treatment [facility] of [address] [address] Demi Granados, PT [address] [place] [address] 07/02/2025 9:30 AM EST Treatment [facility] of [address] [address] Demi Granados, PT [address] [place] [address] documented as of this encounter Visit Diagnoses Not on filedocumented in this encounter Care Teams Plating Technician Relationship Specialty Start Date End Date Efrain Yee NP [address] [place] [address] PCP - General Family Medicine 02/10/24 documented as of this encounter
--- OUTSIDE RECORDS SUMMARY | 2025-06-03 07:30 | XMS_ITS | Encounter Summary ---
Author Organization [facility]ly [facility] Address [address] [place] [address] Care Team Providers Care Route Specialist Name Role Phone Efrain Yee NP Primary Care Provider Encounter Details Date Type Department Care Team (Late st Contact Info) Description 03/14/2024 Scanned Document [facility] [address] [place] [address] Jaspreet Garzon MD [address] [place] [address] Social History Tobacco Use Types Packs/Day Years [...] 06/06/2025 11:30 AM EST Evaluation [facility] [address] Sharan Kraus MD 499 [facility] [address] [place] [address] Demi Granados, PT [address] [place] [address] 06/09/2025 10:00 AM EST Treatment [facility] [address] [address] Demi Granados, PT 7 [place] [address] 06/17/2025 10:30 AM EST Treatment [facility] [address] [address] Demi Granados, PT 7 [place] [address] 06/23/2025 10:00 AM EST Office [facility] [address] [address] Sharan Kraus MD [address] [place] [address] 06/24/2025 9:00 AM EST Treatment [facility] [address] [address] Demi Granados, PT [address] [place] [address] 07/02/2025 9:30 AM EST Treatment [facility] [address] [address] Demi Granados, PT 7 [place] [address] documented as of this encounter Visit Diagnoses Not on filedocumented in this encounter Care Teams Route Specialist Relationship Specialty Start Date End Date Efrain Yee NP [address] [place] [address] PCP - General Family Medicine 02/10/24 documented as of this encounter
--- OUTSIDE RECORDS SUMMARY | 2025-06-03 07:30 | XMS_ITS | Patient Health Record ---
Author Organization [facility] Kelliaranza Galvan Address [address] [facility] [place] [address] Care Team Providers Care Industrial Cook Name Role Phone Efrain Murguia Primary Care Provider Unav ailable Saul Amor Unavailable [phone] Reason For Referral No Information Medications Medication [...] X ray : Foot, left 2V 03/26/2015 [id number] Plate 01/24/2018 [id number] I&D ABSCESS- SIMPLE,SINGLE 016 Insurance Providers Payer Name Payer Address Payer Phone Subscriber Number Group Number Insured Name Patient Relationship to Insured Coverage Start Date Coverage End Date [facility] [address] [place] [address] [id number] Rebecca Mohan Spouse - patient is the spouse of the insured Medical (General) History Medical History History ICD Code Chicken pox Surgical History Surgery Date(Month/Year) Vasectomy 10/15/2018
--- OUTSIDE RECORDS SUMMARY | 2025-06-03 07:30 | XMS_ITS | Encounter Summary ---
Author Organization [facility] Address [address] [place] [address] Care Team Providers Care Associate Professor Of Literature Name Role Phone Efrain Yee NP Primary Care Provider Encounter Details Date Type Department Care Team (Late st Contact Info) Description 04/10/2024 Scanned Document [facility] [address] [place] [address] Sharan Kraus MD [address] [place] [address] Social History Tobacco Use Types Packs/Day Years [...] Description 06/06/2025 11:30 AM EST Evaluation Orthopedic [address] [place] [address] Sharan Kraus MD 499 [facility] [address] [place] [address] Demi Granados, PT [address] [place] [address] 06/09/2025 10:00 AM EST Treatment [facility] [address] [address] Demi Granados, PT 7 [place] [address] 06/17/2025 10:30 AM EST Treatment [facility] [address] [address] Demi Granados, PT 7 [place] [address] 06/23/2025 10:00 AM EST Office Visit [facility] [address] [place] [address] Sharan Kraus MD [address] [place] [address] 06/24/2025 9:00 AM EST Treatment [facility] [address] [address] Demi Granados, PT 7 [place] [address] 07/02/2025 9:30 AM EST Treatment [facility] [address] [address] Demi Granados, PT 7 [place] [address] documented as of this encounter Visit Diagnoses Not on filedocumented in this encounter Care Teams Associate Professor Of Literature Relationship Specialty Start Date End Date Efrain Yee, BECKI [address] [place] [address] PCP - General Family Medicine 02/10/24 documented as of this encounter
--- OUTSIDE RECORDS SUMMARY | 2025-06-03 07:30 | XMS_ITS | Clinical Summary ---
Author Organization [email or web address] Address [address] [place] [address] Care Team Providers Care Per Diem Registered Nurse Name Role Phone Unavailable Primary Care Provider [...]
[2025-06-03 07:41] VITALS: BP 132/78; PULSE 88; TEMP 37.1; O2SAT 97; BMI 37.2
--- NOTE | 2025-06-03 07:41 | AM.OFFWIN_ITS ---
Intake Vital Signs 06/03/25 07:41 Height 5 ft 8 in Weight 245 lb BMI 37.2 BP 132/78 Blood Pressure Location Lt brachial Position Sitting Pulse 88 Pulse Source Pulse Oximeter Temp 98.7 F Temp Source Oral Pulse Oximetry (%) 97 Oxygen Delivery Method Room Air Intake Visit Reasons: EP cough, chest congestion Intake Note: Patient presents c/o cough-green/bloody phlegm, chest congestion/tightness, body aches. fatigue x10 days & worsening. Patient Tobacco Use Status: Never used Tobacco Allergies No Known Allergies Allergy (Verified 06/03/25 07:44) Do you need a note to return to daycare/school/sports/work: No HPI HPI Comments History of Present Illness Details History - The patient is a 44 year old male who presents with a 10-day history of progressively worsening respiratory symptoms. - His symptoms began with congestion, po st-nasal drip, fatigue, and body chills. - Over time, he developed chest pain, sh ortness of breath, and a productive cough. - He reports coughing up a small amount of blood this morning. - He denies any fever but confirms havin g chills and body aches. - The patient is a non-smoker and report s no sick contacts at home. - He has not been taking any medications . - He denies abd pain, n/v/d. - He has been eating and drinking. Physical Exam General: Cooperative, healthy appearing, comfortable and no acute distress Orientation/consciousness: Patient oriented x3 Limitations: No limitations Head: Normal to inspection Ears: Hearing grossly normal bilaterally, external ears normal and TM's normal bilaterally Nose: Normal external nose present, normal nares present, and no nasal discharge present. Face and sinus: Sinuses nontender to palpation. Mouth: Normal oral and palatal mucosa present and moist mucous membranes noted. Throat: Tonsils normal. Uvula is midline. Posterior oropharynx with erythema and no exudates. Eyes: Appearance normal, both eyes and all related structures Neck: Normal visual inspection, full ROM. No lymphadenopathy noted. Respiratory: Clear to auscultation bilaterally. Normal respiratory effort, able to speak in complete sentences. No respiratory distress, not tachypneic, no tripod positioning and no use of accessory muscles. Cardiovascular: Regular rate and rhythm. Normal S1 and S2. No m/r/g noted. Skin: No rashes or lesions noted Patient was informed and verbally consented to the use of an ambient scribe for clinic note documentation during this visit [facility] Medical History Encounter for routine adult health examination without abnormal findings Paroxysmal A-fib Djmhr-Jnhjtmiyn-Rrjzf (WPW) pattern Surgical History History of esophagogastroduodenoscopy (EGD) History of cardiac catheterization History of right inguinal hernia repair Social History Alcohol intake: current Alcohol intake frequency: holidays/special occasions only Patient Tobacco Use Status: Never used Tobacco e-Cigarette/Vaping Use: Never Used Second Hand Smoke Exposure: No service: Yes Current occupational status: employed Current occupation: [employer] Current occupational exposures/hazards: Yes Cognitive needs: No Hearing needs: No Vision needs: No Review of Systems Const All systems reviewed & are unremarkable except as noted in HPI and below Physical Exam Vital Signs: Last Vital Signs Temp 98.7 F 06/03/25 07:41 Pulse 88 06/03/25 07:41 BP 132/78 06/03/25 07:41 Pulse Ox 97 06/03/25 07:41 Oxygen Delivery Method Room Air 06/03/25 07:41 BMI result Body Mass Index 37.2 Results Reviewed Results Reviewed: will review the CXR in the office Assessment & Plan Assessment & Plan (1) Cough: Code(s): R05.9 - Cough, unspecified Qualifiers: Cough type: acute Qualified Code(s): R05.1 - Acute cough Plan Most likely Suspected Pneumonia vs viral illness vs covid vs flu vs RSV vs bronchitis vs URI plan - The patient's presentation with a 10-day history of worsening respiratory symptoms, including productive cough, shortness of breath, chest pain, and new onset hemoptysis, is highly suspicious for pneumonia. - A chest X-ray has been ordered to confirm the diagnosis. - Swabs for COVID-19, influenza, and RSV will also be performed. - The patient will be started on azithromycin (Z-Haim) empirically. - If the chest X-ray is positive for pneumonia, Augmentin will be added to his antibiotic regimen. - A prescription for cough medicine will be sent. - The patient declined an offer for an inhaler or decongestant. - Follow-up will occur via phone call to review test results. Orders: Orders SARS-CoV2/FLU/RSV Today R09.89 - Other specified symptoms and signs involving the circulatory and respiratory systems XR chest 2V Today R05.9 - Cough, unspecified Medications: New azithromycin For 250 mg dose pack: take 500 mg today (day 1), then 250 mg for 4 days (days 2-5) PO 6 tabs 0RF benzonatate 100 mg PO bid-tid PRN 21 caps 0RF Cough 7 days Coding Level of Care Code Est Pt Level 4 ([address]2438) Diagnoses Acute cough R05.1 Cough type: acute
== END 2025-06-03 08:14 | disposition home or self-care (01) ==
PROVIDERS: PCP Nurse Practitioner Family; Visit Provider Physician Assistant Medical
DX: R05.1 Acute cough (principal)

== ENCOUNTER 2025-06-03 07:29 | Outpatient (REF) | payer OTHER, SELFPAY ==
--- NOTE | ~2025-06-03 | XR_ITS ---
EXAMINATION: XR CHEST CLINICAL INFORMATION: R05.9 - Cough, unspecified COMPARISON: None available. TECHNIQUE: PA and lateral views. FINDINGS: No hyperinflation. Pulmonary reticular pattern. Peribronchial opacities in the posterior lower hemithorax seen on the lateral projection nodule identified on the frontal projection. No pleural effusion or pneumothorax. Cardiomediastinal silhouette size is normal. Multilevel spondylosis. S-shaped curvature of the thoracolumbar spine. Patient's large body habitus. XR/XR chest 2V IMPRESSION: Concerning acute airspace disease, left lower lung lobe. A text via [employer] connect centimeters to the physician assistant finance director Yara Frank on June 03, 2025 at 8:43 AM. Received acknowledgment.. Electronically signed by: Celestine Peterson MD 06/03/2025 08:44 AM RODY ROSARIO
[2025-06-03 13:18] LABS: Resp Syncy Virus RNA Qual PCR NEGATIVE (Negative); SARS COV2 PCR INHOUSE NEGATIVE (Negative)
== END 2025-06-03 07:30 | disposition home or self-care (01) ==
LOC: HO.HMGCX 07:29
PROVIDERS: PCP Nurse Practitioner Family; Visit Provider Physician Assistant Medical
DX: R05.1 Acute cough (principal); R09.89 Other specified symptoms and signs involving the circulatory and respiratory systems
CPT/HCPCS: 71046; 87637

== ENCOUNTER → 2025-06-03 08:29 | Outpatient (BNV) | payer OTHER, SELFPAY | PROVIDERS: PCP Nurse Practitioner Family; Visit Provider Radiology Diagnostic Radiology | DX: R05.9 Cough, unspecified (principal) | CPT/HCPCS: 71046 ==